=== PATIENT | female | born 1970 | race Caucasian/White ===

== ENCOUNTER 2016-08-13 13:13 | Emergency (ER) | payer OTHER ==
[2016-08-13] MEDS ORDERED: GI COCKTAIL 60ML (Belladonn/Phenobarb/Lidoc PO ONE (13:31)
[2016-08-13] MEDS ORDERED: Zofran 4 MG/2 ML VIAL IV ONE (13:31)
[2016-08-13] MEDS ORDERED: Pepcid 20 MG VIAL IV ONE ×2 (13:31→13:42)
--- NOTE | 2016-08-13 13:39 | ERPHSYRPT ---
- History of Present Illness Time Seen by Provider: 08/13/16 13:31 Historian: patient Exam Limitations: no limitations Patient Subjective Stated Complaint: PT REPORTS LEFT SIDED CHEST PAIN BEGINNING LAST NIGHT-DENIES DIAPHOERESIS DENIES SOB-STATES THAT SHE FELT VERY COLD Triage Nursing Assessment: PT PINK WARM ET DRY-A & O X 3-LUNGS CLEAR ET EQUAL BILATERALLY-RESP EASY ET NONLABORED-LEFT RADIAL PULSE REGULAR ET STRONG Physician History: patient awoke at 2 am this am with substernal CP; sharp and stabbing; worse laying down; better sitting up; 10/10; no SOB; no N&V; NO sweat; no change in voiding or BMs; hasn't eaten; no referred pain; no prior hx; Hx of DM but had surgery resection of pancreas in 2002 and no meds and not checked since. Couldnt go back to sleep; got child off to school and fell asleep; awoke short time ago and discomfort still there but now 5/5 Timing/Duration: today Activities at Onset: sleep Quality: pressure, stabbing Location: substernal Chest Pain Radiation: no radiation Severity of Pain-Max: severe Severity of Pain-Current: moderate Modifying Factors: Improves With: lying down (worsens), sitting up (helps) Associated Symptoms: denies symptoms Prior Chest Pain/Cardiac Workup: no prior chest pain Nitro Today/Relief: no nitro taken today Aspirin Treatment Today: no aspirin today Allergies/Adverse Reactions: No Known Drug Allergies Allergy (Unverified 08/13/16 13:20) Home Medications: No Home Meds 1 [facility] UD 08/13/16 [History] Hx Tetanus, Diphtheria Vaccination/Date Given: No Hx Influenza Vaccination/Date Given: No Hx Pneumococcal Vaccination/Date Given: No Immunizations Up to Date: Yes - Review of Systems Constitutional: No Symptoms Eyes: No Symptoms Ears, Nose, & Throat: No Symptoms Respiratory: No Cough, No Dyspnea, No Wheezing Cardiac: Chest Pain, No Palpitations, No Syncope, No Orthopnea Abdominal/Gastrointestinal: No Abdominal Pain, No Nausea, No Vomiting, No Diarrhea, No Constipation Genitourinary Symptoms: No Symptoms Musculoskeletal: No Symptoms Skin: No Symptoms Neurological: No Symptoms Psychological: No Symptoms Endocrine: No Symptoms Hematologic/Lymphatic: No Symptoms Immunological/Allergic: No Symptoms - Past Medical History Pertinent Past Medical History: Yes Endocrine Medical History: Diabetes Type II GI Medical History: Other Other Medical History: PANCREATIC TUMOR - Past Surgical History Past Surgical History: Yes Other Surgical History: PANCREATIC - Social History Smoking Status: Current every day smoker How long have you smoked: YRS Exposure to second hand smoke: Yes Alcohol Use: Socially Drug Use: none Patient Lives Alone: No Significant Family History: no pertinent family hx - Female History Hx Last Menstrual Period: THIS MONTH Hx Now: No - Nursing Vital Signs Temperature: 99.0 F Temperature Source: Oral Pulse Rate: 79 Respiratory Rate: 22 Pain Intensity: 7 - Physical Exam General Appearance: moderate distress, alert Eye Exam: PERRL/EOMI, eyes nml inspection, No photophobia Ears, Nose, Throat Exam: normal ENT inspection, TMs normal, pharynx normal, moist mucous membranes Neck Exam: normal inspection, non-tender, supple, full range of motion, No meningismus, No JVD Respiratory Exam: normal breath sounds, lungs clear, airway intact, No chest tenderness, No respiratory distress Cardiovascular Exam: regular rate/rhythm, normal heart sounds, normal peripheral pulses, capillary refill <2 sec, No murmur, No friction rub Gastrointestinal/Abdomen Exam: soft, normal bowel sounds, tenderness (moderate epigastric tenderness mimics CP), No distention, No mass, No guarding, No pulsatile mass, No rebound, No organomegaly Pelvic Exam: deferred Rectal Exam: deferred Back Exam: normal inspection, normal range of motion, No CVA tenderness, No vertebral tenderness, No rash Extremity Exam: normal inspection, normal range of motion, No josephine's sign, No pedal edema Neurologic Exam: alert, oriented x 3, cooperative, die drawing checker II-XII nml as tested, normal mood/affect, nml cerebellar function, nml station & gait, sensation nml Skin Exam: normal color, warm, dry, No rash, No petechiae, No cyanosis SpO2 Interpretation: normal SpO2: 100 Oxygen Delivery: Room Air - Course Nursing assessment & vital signs reviewed: Yes EKG Interpreted by Me: RATE (76), Sinus Rhythm, Left [place] Deviation, NORMAL INTERVALS, NORMAL QRS, Non-specific ST Changes (T wavew inverted in lead III otherwise wnl; no old ekg) Rhythm Strip: Rate (76), Normal Sinus Rhythm - Radiology Exams Chest X-ray Interpretation: Reviewed by me, Teleradiologist Report, Negative, No Pneumonia, No Pneumothorax, Nml Heart Size, No Infiltrates, Nml Mediastinum Ordered Tests: Active Orders 24 hr Category Date Time Status IV Insertion STAT Care 08/13/16 13:31 Active Oxygen-ED Only NASAL CANNULA 2 lpm Care 08/13/16 14:57 Active Re-Check Vital Signs STAT Care 08/13/16 13:31 Active CHEST 1 VIEW (PORTABLE) Stat Exams 08/13/16 13:32 Completed AMYLASE Stat Lab 08/13/16 13:46 Completed CBC W DIFF Stat Lab 08/13/16 13:46 Completed CMP Stat Lab 08/13/16 13:46 Completed LIPASE Stat Lab 08/13/16 13:46 Completed PROTIME WITH INR Stat Lab 08/13/16 13:46 Completed TROPONIN Stat Lab 08/13/16 13:46 Completed TROPONIN Stat Lab 08/13/16 16:45 Ordered Medication Summary Generic Name Dose Route Start Last Admin Trade Name Freq PRN Reason Stop Dose Admin Enoxaparin Sodium 70 mg 08/13/16 15:15 Enoxaparin Sodium SQ 09/12/16 15:14 Q12H DURGA Sodium Chloride 1,000 mls @ 100 mls/hr 08/13/16 13:45 08/13/16 13:48 Sodium Chloride 0.9% 1000 Ml IV 09/12/16 13:44 100 mls/hr .Q10H DURGA Administration Discontinued Medications Generic Name Dose Route Start Last Admin Trade Name Freq PRN Reason Stop Dose Admin Al Hydrox/Mg Hydrox/Simethicone Confirm 08/13/16 13:42 Maalox Es 30 Ml Unit Dose Administered 08/13/16 13:43 Dose 30 ml .ROUTE .STK-MED ONE Aspirin 324 mg 08/13/16 14:57 08/13/16 15:06 Baby Aspirin 81 Mg Chew PO 08/13/16 14:58 324 mg STAT ONE Administration Aspirin Confirm 08/13/16 15:00 Baby Aspirin 81 Mg Chew Administered 08/13/16 15:01 Dose 324 mg .ROUTE .STK-MED ONE Belladonna Alkaloids/Phenobarbital 60 ml 08/13/16 13:31 08/13/16 13:48 Gi Cocktail 60ml (Belladonn/Phenobarb/Lidoc* PO 08/13/16 13:32 60 ml STAT ONE Administration Belladonna Alkaloids/Phenobarbital Confirm 08/13/16 13:43 Donnatol Liquid Administered 08/13/16 13:44 Dose 64.8 mg .ROUTE .STK-MED ONE Famotidine 20 mg 08/13/16 13:31 08/13/16 13:47 Pepcid 20 Mg Vial IV 08/13/16 13:32 20 mg STAT ONE Administration Famotidine Confirm 08/13/16 13:42 Pepcid 20 Mg Vial Administered 08/13/16 13:43 Dose 20 mg IV .STK-MED ONE Sodium Chloride Confirm 08/13/16 13:43 Sodium Chloride 0.9% 1000 Ml Administered 08/13/16 13:44 Dose 1,000 mls @ ud .ROUTE .STK-MED ONE Lidocaine HCl Confirm 08/13/16 13:42 Xylocaine Hcl Viscous * Administered 08/13/16 13:43 Dose 20 ml .ROUTE .STK-MED ONE Nitroglycerin 1 gm 08/13/16 14:57 08/13/16 15:06 Nitro-Bid 2% Ud Packets TOP 08/13/16 14:58 1 gm STAT ONE Administration Nitroglycerin Confirm 08/13/16 15:01 Nitro-Bid 2% Ud Packets Administered 08/13/16 15:02 Dose 1 gm .ROUTE .STK-MED ONE Ondansetron HCl 4 mg 08/13/16 13:31 08/13/16 13:46 Zofran 4 Mg/2 Ml Vial IV 08/13/16 13:32 4 mg STAT ONE Administration Ondansetron HCl Confirm 08/13/16 13:42 Zofran 4 Mg/2 Ml Vial Administered 08/13/16 13:43 Dose 4 mg .ROUTE .STK-MED ONE Lab/Rad Data: Laboratory Result Diagrams 08/13/16 13:46 08/13/16 13:46 Laboratory Results 08/13/16 08/13/16 08/13/16 Range/Units 13:46 13:46 13:46 WBC (4.0-10.5) K/mm3 RBC (4.1-5.4) M/mm3 Hgb (12.0-16.0) gm/dl Hct (35-47) % MCV (78-100) fl MCH (26-32) pg MCHC (32-36) g/dl RDW (11.5-14.0) % Plt Count (150-450) K/mm3 MPV (6-9.5) fl Gran % (36.0-66.0) % Lymphocytes % (24.0-44.0) % Monocytes % (0.0-12.0) % Eosinophils % (0.00-5.0) % Basophils % (0.0-0.4) % Basophils # (0-0.4) INR 0.96 (0.8-3.0) Sodium 140 (136-145) mEq/L Potassium 4.0 (3.5-5.1) mEq/L Chloride 101 (98-107) mEq/L Carbon Dioxide 23.5 (21-32) mEq/L Anion Gap 19.4 H (5-15) MEQ/L BUN 15 (9-20) mg/dL Creatinine 0.78 (0.55-1.30) mg/dl Estimated GFR > 60 ML/MIN Glucose 249 H (70-110) MG/DL Calcium 9.6 (8.5-10.1) mg/dL Total Bilirubin 0.5 (0.2-1.0) mg/dL AST 49 H (15-37) U/L ALT 24 (12-78) U/L Alkaline Phosphatase 136 H (46-116) U/L Troponin I 6.028 H* (0.000-0.056) ng/ml Serum Total Protein 8.8 H (6.4-8.2) gm/dL Albumin 4.4 (3.4-5.0) g/dL Amylase 18 L (25-115) U/L Lipase 103 (73-393) U/L /11/24 Range/Units 13:46 WBC 19.6 H (4.0-10.5) K/mm3 RBC 6.10 H (4.1-5.4) M/mm3 Hgb 17.4 H (12.0-16.0) gm/dl Hct 51.9 H (35-47) % MCV 85.1 (78-100) fl MCH 28.5 (26-32) pg MCHC 33.5 (32-36) g/dl RDW 14.5 H (11.5-14.0) % Plt Count 572 H (150-450) K/mm3 MPV 10.3 H (6-9.5) fl Gran % 72.4 H (36.0-66.0) % Lymphocytes % 20.1 L (24.0-44.0) % Monocytes % 6.3 (0.0-12.0) % Eosinophils % 0.7 (0.00-5.0) % Basophils % 0.5 (0.0-0.4) % Basophils # 0.09 (0-0.4) INR (0.8-3.0) Sodium (136-145) mEq/L Potassium (3.5-5.1) mEq/L Chloride (98-107) mEq/L Carbon Dioxide (21-32) mEq/L Anion Gap (5-15) MEQ/L BUN (9-20) mg/dL Creatinine (0.55-1.30) mg/dl Estimated GFR ML/MIN Glucose (70-110) MG/DL Calcium (8.5-10.1) mg/dL Total Bilirubin (0.2-1.0) mg/dL AST (15-37) U/L ALT (12-78) U/L Alkaline Phosphatase (46-116) U/L Troponin I (0.000-0.056) ng/ml Serum Total Protein (6.4-8.2) gm/dL Albumin (3.4-5.0) g/dL Amylase (25-115) U/L Lipase (73-393) U/L reviewed - Progress Progress: improved (after meds), re-examined (after meds and xr) Air Movement: good Progress Note: 08/13/16 13:41 IV started, eKG done and ok; xr and labs pending; will medicate and recheck; VS and pulse ox ok 08/13/16 14:01 rechecked; and daughter at bedside; moderate relief with meds; VS and sats ok; pain 3/5; no change in exam; ekg and cxr ok; labs pending; will monitor and recheck 08/13/16 14:25 rechecked and pain resolved; feeling much better; no pain; VS ok; FSBS 240; elevated WBC 08/13/16 14:48 Troponin came back elevated at 6.28; will repeat EKG and transfer to an appropriate facility 08/13/16 14:56 patient and family notified of elevated Troponin and need to admit and transfer to cardiac center; Transfer process started will medicate 08/13/16 15:08 Dr Carey, Hospitalist at [facility] accepted the patient for transfer. Patient will get Lovenox and repeat Troponin if here long enough. 08/13/16 15:23 Dr Lara consulted adn concurs with transfer Blood Culture(s) Obtained: No Antibiotics given: No Discussed with Dr.: Other (Dr Carey, Hospitalist at [facility] accepted at [id number]) Will see patient in: other Counseled pt/family regarding: lab results, diagnosis, need for follow-up, rad results, smoking cessation - Departure Time of Disposition: 15:24 Departure Disposition: Transfer (to Dr Carey at [facility]) Clinical Impression: Chest pain at rest, Non-STEMI (non-ST elevated myocardial infarction) Condition: Critical Critical Care Time: Yes Critical Care Time(excluding separately billable procedures): 30-74 minutes Referrals: BOONE LARA MD [Primary Care Provider] - RADHA CAREY [NON-STAFF PHY W/O PRIVILEGES] - Additional Instructions: transfer to Dr Carey at [facility]
[2016-08-13] MEDS ORDERED: XYLOCAINE HCl Viscous ONE (13:42)
[2016-08-13] MEDS ORDERED: MAALOX ES 30 ML UNIT DOSE ONE (13:42)
[2016-08-13] MEDS ORDERED: Zofran 4 MG/2 ML VIAL ONE (13:42)
[2016-08-13] MEDS ORDERED: Donnatol Liquid ONE (13:43)
[2016-08-13] MEDS ORDERED: Sodium Chloride 0.9% 1000 ML 1,000 ML ONE (13:43)
[2016-08-13] MEDS ORDERED: Sodium Chloride 0.9% 1000 ML 1,000 ML IV SCH (13:45)
[2016-08-13 13:49] LABS: BASOPHIL % 0.5 % (0.0-0.4); Eosinophil % 0.7 % (0.00-5.0); Granulocytes % 72.4 % (36.0-66.0); Lymphocytes % 20.1 % (24.0-44.0); Mean Cell Volume 85.1 fl (78-100); Mean Corpuscular Hemoglobin 28.5 pg (26-32); Mean Platelet Volume 10.3 fl (6-9.5); Monocytes % 6.3 % (0.0-12.0); Platelet Count 572 K/mm3 (150-450); Red Cell Distribution Width 14.5 % (11.5-14.0); White Blood Count 19.6 K/mm3 (4.0-10.5)
--- NOTE | 2016-08-13 13:49 | XRAY ---
Indication: Chest pain. Comparison: None Portable chest demonstrates normal heart, lungs, and bony thorax.
[2016-08-13 14:07] LABS: INR 0.96 (0.8-3.0); PROTIME 10.8 SECONDS (9.95-12.35)
[2016-08-13 14:22] LABS: ALBUMIN 4.4 g/dL (3.4-5.0); ALKALINE PHOSPHATASE 136 U/L (46-116); ANION GAP 19.4 MEQ/L (5-15); BILIRUBIN,TOTAL 0.5 mg/dL (0.2-1.0); BLOOD UREA NITROGEN 15 mg/dL (9-20); CHLORIDE 101 mEq/L (98-107); Carbon Dioxide 23.5 mEq/L (21-32); Glucose 249 MG/DL (70-110); LIPASE 103 U/L (73-393); SGOT/AST 49 U/L (15-37); SGPT/ALT 24 U/L (12-78); SODIUM 140 mEq/L (136-145); Total Protein 8.8 gm/dL (6.4-8.2)
[2016-08-13] MEDS ORDERED: BABY ASPIRIN 81 MG CHEW PO ONE (14:57)
[2016-08-13] MEDS ORDERED: NITRO-BID 2% UD PACKETS TOP ONE (14:57)
[2016-08-13] MEDS ORDERED: BABY ASPIRIN 81 MG CHEW ONE (15:00)
[2016-08-13] MEDS ORDERED: NITRO-BID 2% UD PACKETS ONE (15:01)
[2016-08-13] MEDS ORDERED: ENOXAPARIN SODIUM SQ SCH (15:15)
[2016-08-13] MEDS ORDERED: ENOXAPARIN SODIUM SQ ONE (15:41)
[2016-08-13 15:50] VITALS: BP 155/71; PULSE 80; O2SAT 96
== END 2016-08-13 15:49 | disposition short-term general hospital (02) ==
LOC: ED 13:13
DX: I21.4 Non-ST elevation (NSTEMI) myocardial infarction (principal); R07.9 Chest pain, unspecified
CPT/HCPCS: 36000; 36415; 71010; 80053; 82150; 82962; 83690; 84484; 85025; 85610; 96360; 96361; 96372; 96374; 96375; 99285; J1650; J2405